=== PATIENT | male | born 1965 | race Caucasian/White ===

== ENCOUNTER 2024-09-24 14:18 | Emergency (ER) | payer OTHER ==
[2024-09-24] MEDS: Ibuprofen 600 MG Tab PO ONE (15:13)
== END 2024-09-24 17:06 | disposition home or self-care (01) ==
LOC: MW.ED 14:18
DX: S40.012A Contusion of left shoulder, initial encounter (principal); V89.2XXA Person injured in unspecified motor-vehicle accident, traffic, initial encounter
CPT/HCPCS: 71045; 73030; 73060; 99284; A9270